=== PATIENT | male | born 1940 | race Caucasian/White ===

== ENCOUNTER 2016-09-05 11:15 | Outpatient (CLI) | payer MEDICARE, BC ==
[2016-09-05 12:45] LABS: Hemoglobin A1c 6.9 % (4.0-6.0)
[2016-09-05 12:47] LABS: ALT (SGPT) 17 U/L (0-55); AST (SGOT) 21 U/L (5-34); Alkaline Phosphatase 67 U/L (40-150); Anion Gap 14 mmol/L (10-20); BUN (Urea Nitrogen) 32 mg/dL (8.4-25.7); Bilirubin, Total 0.5 mg/dL (0.2-1.2); Calc. Creatinine Clearance 0 mL/min (70-130); Calcium 9.3 mg/dL (7.8-10.44); Carbon Dioxide 26 mmol/L (23-31); Chloride 103 mmol/L (98-107); Estimated GFR-MDRD 33; Globulin 3.3 g/dL (2.4-3.5); LDL Cholesterol, Calculated 56 mg/dL; Protein, Total 7.4 g/dL (5.8-8.1)
[2016-09-05 18:22] LABS: Microalbumin Urine Less than 1.0 mg/dL (0.5-50.0)
== END 2016-09-05 11:16 | disposition home or self-care (01) ==
LOC: BURLAB 11:15
PROVIDERS: ATTEND Family Medicine
DX: E11.9 Type 2 diabetes mellitus without complications (principal)
CPT/HCPCS: 36415; 80053; 80061; 82043; 82570; 83036

== ENCOUNTER 2016-10-04 08:15 | Outpatient (CLI) | payer MEDICARE, BC ==
[2016-10-04 08:52] LABS: ALT (SGPT) 10 U/L (0-55); AST (SGOT) 22 U/L (5-34); Alkaline Phosphatase 63 U/L (40-150); Anion Gap 13 mmol/L (10-20); BUN (Urea Nitrogen) 34 mg/dL (8.4-25.7); Bilirubin, Total 0.6 mg/dL (0.2-1.2); Calc. Creatinine Clearance 0 mL/min (70-130); Calcium 9.1 mg/dL (7.8-10.44); Carbon Dioxide 27 mmol/L (23-31); Chloride 102 mmol/L (98-107); Estimated GFR-MDRD 30; Globulin 3.4 g/dL (2.4-3.5); LDL Cholesterol, Calculated 53 mg/dL; Protein, Total 7.3 g/dL (5.8-8.1)
== END 2016-10-04 08:16 | disposition home or self-care (01) ==
LOC: BURLAB 08:15
PROVIDERS: ATTEND Internal Medicine Cardiovascular Disease
DX: E78.00 Pure hypercholesterolemia, unspecified (principal); I12.9 Hypertensive chronic kidney disease with stage 1 through stage 4 chronic kidney disease, or unspecified chronic kidney disease; N18.3 Chronic kidney disease, stage 3 (moderate); E11.00 Type 2 diabetes mellitus with hyperosmolarity without nonketotic hyperglycemic-hyperosmolar coma (NKHHC)
CPT/HCPCS: 36415; 80053; 80061; 82570; 83970; 84156

== ENCOUNTER 2017-02-05 09:56 | Outpatient (CLI) | payer MEDICARE, BC ==
[2017-02-05 10:37] LABS: Anion Gap 15 mmol/L (10-20); BUN (Urea Nitrogen) 29 mg/dL (8.4-25.7); Calc. Creatinine Clearance 0 mL/min (70-130); Carbon Dioxide 23 mmol/L (23-31); Chloride 102 mmol/L (98-107); Estimated GFR-MDRD 35; Glucose 147 mg/dL (83-110); Potassium 4.4 mmol/L (3.5-5.1); Sodium 136 mmol/L (136-145)
== END 2017-02-05 09:57 | disposition home or self-care (01) ==
LOC: BURLAB 09:56
PROVIDERS: ATTEND Internal Medicine Nephrology
DX: I12.9 Hypertensive chronic kidney disease with stage 1 through stage 4 chronic kidney disease, or unspecified chronic kidney disease (principal); N18.3 Chronic kidney disease, stage 3 (moderate)
CPT/HCPCS: 36415; 80048

== ENCOUNTER 2017-04-10 08:27 | Outpatient (CLI) | payer MEDICARE, BC ==
[2017-04-10 08:54] LABS: ALT (SGPT) 22 U/L (8-55); AST (SGOT) 33 U/L (5-34); Albumin 4.1 g/dL (3.4-4.8); Alkaline Phosphatase 74 U/L (40-150); Anion Gap 13 mmol/L (10-20); BUN (Urea Nitrogen) 33 mg/dL (8.4-25.7); Bilirubin, Total 0.6 mg/dL (0.2-1.2); Calc. Creatinine Clearance 0 mL/min (70-130); Calcium 9.5 mg/dL (7.8-10.44); Carbon Dioxide 24 mmol/L (23-31); Cardiac Risk 2.6 (Less than 4.5); Chloride 105 mmol/L (98-107); Cholesterol 102 mg/dl (< 200 Desired); Estimated GFR-MDRD 34; Globulin 3.6 g/dL (2.4-3.5); Glucose 145 mg/dL (83-110); HDL Cholesterol 40 mg/dL (>60 Neg Risk); LDL Cholesterol, Calculated 49 mg/dL; Potassium 4.6 mmol/L (3.5-5.1); Protein, Total 7.7 g/dL (5.8-8.1); Sodium 137 mmol/L (136-145); Triglycerides 65 mg/dL (Less than 150)
== END 2017-04-10 08:28 | disposition home or self-care (01) ==
LOC: BURLAB 08:27
PROVIDERS: ATTEND Internal Medicine Cardiovascular Disease
DX: E78.00 Pure hypercholesterolemia, unspecified (principal)
CPT/HCPCS: 36415; 80053; 80061

== ENCOUNTER 2020-02-23 09:47 | Emergency (ER) | payer MEDICARE, BC ==
[2020-02-23 11:34] LABS: ALT (SGPT) 8 U/L (8-55); AST (SGOT) 19 U/L (5-34); Albumin 3.9 g/dL (3.4-4.8); Alkaline Phosphatase 60 U/L (40-110); Anion Gap 15 mmol/L (10-20); BUN (Urea Nitrogen) 24 mg/dL (8.4-25.7); Bilirubin, Total 0.7 mg/dL (0.2-1.2); Calc. Creatinine Clearance 0 mL/min (70-130); Carbon Dioxide 20 mmol/L (23-31); Chloride 103 mmol/L (98-107); Estimated GFR-MDRD 41; Globulin 3.4 g/dL (2.4-3.5); Glucose 206 mg/dL (83-110); Lipase 11 U/L (8-78); Protein, Total 7.3 g/dL (5.8-8.1); Sodium 134 mmol/L (136-145)
[2020-02-23 11:35] LABS: #Eosinphils 0.1 thou/uL (0.0-0.7); #Lymphocytes 0.9 thou/uL (1.20-3.40); #Neutrophils 10.3 thou/uL (1.40-6.50); %Basophils 0.4 % (0.0-1.0); %Eosinophils 0.7 % (0.0-10.0); %Lymphocytes 7.4 % (21.0-51.0); %Monocytes 8.3 % (0.0-10.0); %Neutrophils 83.3 % (42.0-75.0); Hemoglobin 13.7 g/dL (14.0-18.0); Large Platelets SLIGHT; MDiff Complete? YES; Mean Corpuscular Hemoglobin 30.2 pg (27.0-31.0); Mean Corpuscular Volume 97.5 fL (78.0-98.0); Mean Platelet Volume 11.4 fL (7.4-10.4); Platelet Count 107 thou/uL (130-400); RBC Distribution Width 12.3 % (11.5-14.5); Red Blood Cell (RBC) Count 4.54 mill/uL (4.70-6.10); White Blood Cell (WBC) Count 12.3 thou/uL (4.8-10.8)
[2020-02-23 13:24] LABS: Bilirubin Negative (Negative); Blood, Urine Trace (Negative); Clarity Clear (Clear); Glucose, Urine (Dipstick) 250 mg/dL (Negative); Ketone, Urine Negative (Negative); Leukocyte Negative (Negative); Nitrite Negative (Negative); Protein, Urine (Dipstick) Trace mg/dL (Neg-Trace); Specific Gravity, Urine 1.015 (1.005-1.030); Urobilinogen 0.2 mg/dL (Less than 2)
[2020-02-23 13:31] LABS: Bacteria/HPF None Seen HPF (None Seen); RBC/HPF 0-3 HPF (0-3); Squamous Epithelial None Seen HPF (0-3); WBC/HPF None Seen HPF (0-3)
--- NOTE | 2020-02-23 14:27 | RAD ---
ABDOMEN 1 VIEW: Date; 02/23/2020 Comparison made with an 06/17/2019 study from [facility]. As before, there is a very large amount of fecal material in the colon. It does not appear overtly ob structed, however. No loops are significantly dilated. No calcifications of concern were seen. Degene rative changes are present in the spine. IMPRESSION: Moderately severe constipation. POS: HOME
--- NOTE | 2020-02-23 15:15 | CT ---
CT ABDOMEN AND PELVIS WITH CONTRAST: DATE: 02/23/2020. FINDINGS: Comparison is made with the prior CT dated 11/17/2015 as well as several older studies. There is some dependent atelectasis and scarring bilaterally. Some chronic pleural thickening is see n along the left. On the top-most few slices, there is a density in the lingular region abutting th e pleura. Although I cannot be certain this is current pathology, looking back at old scans, it seem s more likely that is the residual of old disease in this location. A small hiatal hernia is present. The liver, spleen, pancreas, adrenal glands, kidneys, and abdomina l aorta showed no acute findings. The gallbladder is mildly generous in size, but no wall thickening was seen. Some nonobstructing renal calculi are present. Calcification is seen in the aorta. There is a large amount of fecal material in bowel, but there is no sign of overt obstruction. No parish wel wall thickening was present. There is no free air or free fluid. CT of the pelvis shows no pelvic masses, fluid collections, or inflammatory changes. The amount of s tool in the rectal vault is large. Degenerative changes are present throughout the entire spine, but prominent central canal stenosis is present at L2-L3 due to a combination of concentric disk bulges and facet and ligamentous hypertrophy. It appears to have worsened over the years. IMPRESSION: 1. Severe constipation. 2. Chronic changes in the left lung base. See comments above. 3. Small hiatal hernia. 4. Mild prominence of gallbladder size which may or may not be of significance. 5. Nonobstructing renal calculi. Discussed with Dr. Zarco at 1348 on 02/23/2020. CODE CR POS: HOME
== END 2020-02-23 14:26 | disposition home or self-care (01) ==
LOC: BURERS 09:47
DX: K59.00 Constipation, unspecified (principal); I10 Essential (primary) hypertension; E11.9 Type 2 diabetes mellitus without complications; E78.5 Hyperlipidemia, unspecified; I25.2 Old myocardial infarction; Z87.891 Personal history of nicotine dependence; Z79.899 Other long term (current) drug therapy; Z79.84 Long term (current) use of oral hypoglycemic drugs; Z79.82 Long term (current) use of aspirin
CPT/HCPCS: 36415; 51701; 74018; 74177; 80053; 81003; 81015; 82274; 83605; 83690; 85025

== ENCOUNTER 2021-08-29 08:24 | Outpatient (CLI) | payer MEDICARE, BC ==
[2021-08-29 09:34] LABS: ALT (SGPT) 16 U/L (8-55); AST (SGOT) 22 U/L (5-34); Albumin 4.3 g/dL (3.4-4.8); Alkaline Phosphatase 75 U/L (40-110); Anion Gap 14 mmol/L (10-20); BUN (Urea Nitrogen) 25 mg/dL (8.4-25.7); Calc. Creatinine Clearance 0 mL/min (70-130); Calcium 9.7 mg/dL (7.8-10.44); Carbon Dioxide 28 mmol/L (23-31); Chloride 101 mmol/L (98-107); Cholesterol 105 mg/dl (< 200 Desired); Globulin 3.1 g/dL (2.4-3.5); Glucose 182 mg/dL (83-110); HDL Cholesterol 35 mg/dL (>60 Neg Risk); LDL Cholesterol, Calculated 52 mg/dL; Potassium 4.6 mmol/L (3.5-5.1); Protein, Total 7.4 g/dL (5.8-8.1); Sodium 138 mmol/L (136-145); Triglycerides 92 mg/dL (Less than 150)
== END 2021-08-29 08:25 | disposition home or self-care (01) ==
LOC: BURRAD 08:24
PROVIDERS: ATTEND Urology
DX: N20.0 Calculus of kidney (principal); E78.00 Pure hypercholesterolemia, unspecified; K59.00 Constipation, unspecified; Z87.898 Personal history of other specified conditions
CPT/HCPCS: 36415; 74018; 80053; 80061